=== PATIENT | male | born 1980 | race Two or more races ===

== ENCOUNTER 2017-03-25 16:04 | Emergency (ER) | payer MEDICAID ==
--- NOTE | 2017-03-25 16:48 | ED Physician Chart ---
ED Chief Complaint/HPI - Patient Information Date Seen:: 03/25/17 Time Seen:: 16:42 Chief Complaint:: Diarrhea and nausea after meal History of Present Illness:: 37 yo overweight male developed epigastric pain and watery diarrhea 3 times after eating sausage sandwich this morning. He felt nausea but no vomiting. Denies any fever or chills. 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 Cardiac arrhythmia 6 years ago) Family History: None Social History: Non Smoker, No Alcohol, No Drug Use Surgical History: Hernia (umbilical hernia repaired 6 years ago ) Family Medical History - Family Member Mother History Unknown: Yes ED Physical Exam - Physical Examination General/Constitutional: Awake, Well-developed, well-nourished, Alert Head: Atraumatic Eyes: Lids, conjuctiva normal, PERRL, EOMI Skin: Nl inspection, No rash, No skin lesions, No ecchymosis, Well hydrated, No lymphadenopathy ENMT: External ears, nose nl, Nasal exam nl, Lips, teeth, gums nl Neck: Nontender Respiratory: Clear to Auscultation, No Wheeze/Rhonchi/Rales Cardio Vascular: RRR, No murmur, gallop, rubs, NL S1 S2 Other GI comments:: RUQ and epigastric tenderness. Abdomen soft, no guarding. BS normal. Extremities: Full ROM Neuro/Psych: Alert/oriented ED Labs/Radiology/EKG Results - Lab Results Results: Triglycerides 418 mg/dL ED Assessment - Assessment General Assessment: 37 yo male had epigastic pain with diarrhea and nausea. The differentials include gastroenteritis, biliary colic or pancreatitis. His lab showed hypertriglyceridemia. Critical Care Time: 2 hours Excludes all billable procedures: Yes This condition life threatening/high prob of deterioration: No Assessment/Comments:: Abdominal ultrasound CBC, CMP, Amylase, Lipase Zofran IVF Pantoprazole Discharge home with Ciprofloxacin 500mg Bid x 5 days Gemfibrozil 600mg Bid x 30 days Follow up PCP ED Septic Shock - <6hrs of presentation: Vital Signs: Vital Signs - 8 hr 03/25/17 16:09 Temp 97.8 F HR 97 RR 14 BP 133/91 O2 Sat % 97 ED Reassessment (Disposition) - Reassessment Reassessment Condition:: Improved - Aftercare/Follow up Instructions Aftercare/Follow-Up Instructions:: Counseled pt regarding lab results/diagnosis & need follow up, Refer to Discharge Instructions - Patient Disposition Discharge/Transfer:: Home ED Discharge Plan - Patient Disposition Prescriptions: Ciprofloxacin [Cipro] 500 mg PO BID #10 tab Gemfibrozil [Lopid*] 600 mg PO BID #60 tab Instructions: Viral Gastroenteritis, [id number], Hypertriglyceridemia, Triglycerides, High Blood Levels
[2017-03-25 17:16] LABS: % BASOPHILS 0.5 % (0.0-2.0); % EOSINOPHILS 3.4 % (0.0-5.0); % LYMPHOCYTES 22.4 % (20.0-50.0); % MONOCYTES 7.1 % (2.0-10.0); % NEUTROPHILS 66.6 % (40.0-80.0); HEMATOCRIT 46.6 % (41.0-60); HEMOGLOBIN 16.2 gm/dL (12-16); MEAN CELL VOLUME 85.2 fl (80-99); MEAN CORPUSCULAR HEMOGLOBIN 29.7 pg (26.0-30.0); MEAN CORPUSCULAR HGB CONC 34.8 pg (28.0-36.0); MEAN PLATELET VOLUME 8.4 fl; NEUTROPHILE ABSOLUTE 6.8 Th/cmm (1.8-8.0); PLATELET COUNT 270 Th/cmm (150-400); RED BLOOD COUNT 5.47 Mil/cmm (4.30-5.70); RED CELL DISTRIBUTION WIDTH 11.1 % (11.5-20.0)
[2017-03-25 17:37] LABS: ALB/GLOB RATIO 1.7 (1.0-1.8); ALKALINE PHOSPHATASE 113 U/L (34-104); AMYLASE SERUM 42 U/L (29-103); ANION GAP 8.5 (7.0-16.0); BILIRUBIN,TOTAL 0.3 mg/dL (0.3-1.0); BUN - UREA NITROGEN 9 mg/dL (7-25); BUN/CREATININE RATIO 11.3; CALCIUM SERUM 9.5 mg/dL (8.6-10.3); CARBON DIOXIDE 25.4 mEq/L (21.0-31.0); CHLORIDE 101 mEq/L (98-107); CHOLESTEROL 178 mg/dL (<200); CREATININE - SERUM 0.8 mg/dL (0.7-1.3); GLUCOSE 108 mg/dL (70-105); LIPASE 31 U/L (11-82); POTASSIUM SERUM 3.9 mEq/L (3.5-5.1); SGOT 16 U/L (13-39); SGPT/ALT 22 U/L (7-52); SODIUM SERUM 131 mEq/L (136-145); TRIGLYCERIDES 418 mg/dL (<150)
[2017-03-25] MEDS ORDERED: Sodium Chloride 0.9% 1,000 ML IV ONE (18:11)
[2017-03-25 18:14] LABS: URINE BILIRUBIN NEGATIVE (NEGATIVE); URINE BLOOD NEGATIVE (NEGATIVE); URINE GLUCOSE (UA) NEGATIVE (NEGATIVE); URINE KETONE NEGATIVE (NEGATIVE); URINE PH 6.5 (4.6 - 8.0); URINE PROTEIN NEGATIVE (NEGATIVE); URINE UROBILINOGEN 0.2 E.U./dL (0.2 - 1.0)
[2017-03-25 20:31] LABS: URINE COLOR YELLOW
[2017-03-25 20:34] LABS: URINE BACTERIA NONE SEEN /hpf (NONE SEEN); URINE EPITHELIAL CELLS NONE SEEN /lpf (FEW); URINE RBC NONE SEEN /hpf (0-5); URINE WBC NONE SEEN /hpf (0-5)
--- NOTE | 2017-03-26 08:18 | Diagnostic Imaging Report ---
Portable chest x-ray Time: 1847 History: Abnormal EKG Allowing for portable technique the heart size is normal. No focal pulmonary parenchymal processes. No hilar or mediastinal abnormalities. Impression: No acute abnormalities.
--- NOTE | 2017-03-26 08:19 | Diagnostic Imaging Report ---
Exam: Limited examination of gallbladder. HISTORY: Pain Findings: Limited examination of gallbladder demonstrates normal appearance of gallbladder. There is no evidence for cholelithiasis or pericholecystic fluid collection. The gallbladder wall measures 2 mm Common bile duct measures 3 mm. IMPRESSION: Normal limited examination of gallbladder.
== END 2017-03-25 20:07 | disposition home or self-care (01) ==
LOC: ER 16:04
DX: R10.13 Epigastric pain (principal)
CPT/HCPCS: 99291; 96374; 76705; 96375; 99292; 93005; 71010; 84484; 83880; 36415; 85025; 81001; 82150; 83690; 80053; 80061; C9113; J2405; J7030; Z7502